=== PATIENT | female | born 1960 | race Caucasian/White ===

== ENCOUNTER 2016-08-31 12:53 | Observation (INO) | payer OTHER ==
[~2016-08-31] VITALS: Ht 165.1 cm; Wt 84.0 kg
[~2016-08-31 12:53] MED LIST: CYCL5TAB PO; ESTR0.5T9 PO; OXYC-360 PO; PARENTERAL ELECTROLYTES PH 7.4 1000 ML BAG IV ONE
[2016-08-31 12:55] VITALS: BP 194/90; PULSE 82; RESP 20; TEMP 97.6; O2SAT 99
[2016-08-31] MEDS ORDERED: SODIUM CHLOR 0.9% 1000 ML INJ 1,000 ML IV SCH (13:18)
--- NOTE | 2016-08-31 13:19 | PD ---
HPI Chief Complaint: Foreign Body Time Seen by Provider: 13:19 Travel History International Travel<30 days: No Contact w/Intl Traveler<30days: No Traveled to known affect area: No History of Present Illness HPI 55-year-old female with a history of chronic low back pain presents to the emergency department for evaluation of difficulty swallowing. The patient states that last night after eating a hot dog she feels as though it is stuck in her throat and she cannot swallow it down. States that she's been unable to swallow anything since this occurred last night, cannot even swallow her saliva. She denies any vomiting or abdominal pain. States that this has happened to her multiple times over the last 10 years however the symptoms last about 10 minutes to 2 hours and either she vomits or the food will pass and it will resolve on its own. States that this is the only instance it has lasted this long and not resolved. If that she did have an endoscopy about 3 years ago , thinks that this was performed by Dr. Lares. She denies any fever, chills , chest pain, shortness of breath, abdominal pain, diarrhea, constipation. PCP Dr. Duran. No other complaints. PFSH Past Medical History Hx Anticoagulant Therapy: No Anxiety: Yes Heart Rhythm Problems: No Cancer: No Cardiac Catheterization: No Cardiovascular Problems: No High Cholesterol: No Chemotherapy: No Congestive Heart Failure: No Cerebrovascular Accident: No Diabetes: No Hepatitis: No Hiatal Hernia: No Heparin Induced Thrombocytopen: No Hypertension: No Medical other: No Musculoskeletal: Yes (BACK PAIN) Respiratory: No Thyroid Disease: No PNEUMOCCOCAL Vaccine (Year): 2 ?: Not (status post hysterectomy) Past Surgical History Coronary Artery Bypass Graft: No Gynecologic Surgery: Yes (DONATED EGGS) Hysterectomy: Yes Other Surgery: Yes Family History Family Myocardial Infarction: No Social History Alcohol Use: No Tobacco Use: No Substance Use: No Allergies-Medications (Allergen,Severity, Reaction): Coded Allergies: Codeine (Verified Allergy, Severe, Nausea/Vomiting, 08/31/16) Reported Meds & Prescriptions Reported Meds & Active Scripts Active Reported Magnesium 250 Mg Tab Hydrocodone-Acetaminophen 5-300 Mg Tab 5 Tab PO Q4H PRN Estrace (Estradiol) 1 Mg Tab 1 Mg PO DAILY Vitamin D (Cholecalciferol) 1,000 Unit Tab 1,000 Units PO DAILY B-12 (Cyanocobalamin) 1,000 Mcg Lozg 1,000 Mcg BUCCAL DAILY Amitriptyline (Amitriptyline HCl) 10 Mg Tab 10 Mg PO HS Review of Systems Except as stated in HPI: all other systems reviewed are Neg Physical Exam Narrative GENERAL: Well-nourished and well-developed pleasant female patient in no acute distress. SKIN: Warm and dry. HEAD: Normocephalic and atraumatic. EYES: No injection, drainage, or hyphema noted. PERRLA. EOMI. ENT: No nasal drainage noted. Oropharynx is clear and the airway is patent. NECK: Supple and the trachea is midline. CARDIOVASCULAR: Regular rate and rhythm. RESPIRATORY: Breath sounds are equal bilaterally with no accessory muscle use, wheezing, rhonchi, or crackles. GASTROINTESTINAL: Abdomen is soft, non-tender, and nondistended. MUSCULOSKELETAL: No obvious deformities, swelling, cyanosis, or ecchymosis is present throughout the upper and lower extremities. Patient has full range of motion without any signs of neurovascular compromise. NEUROLOGICAL: Awake, alert, and oriented. Normal speech and gait. Cranial nerves are grossly intact. Data Data Last Documented VS Vital Signs Date Time Temp Pulse Resp B/P Pulse Ox O2 Delivery O2 Flow Rate FiO2 08/31/16 13:34 97 Nasal Cannula 2 08/31/16 13:33 84 18 08/31/16 12:55 97.6 194/90 Orders Complete Blood Count With Diff (08/31/16 13:18) Comprehensive Metabolic Panel (08/31/16 13:18) Lipase (08/31/16 13:18) Prothrombin Time / Inr (Pt) (08/31/16 13:18) Act Partial Throm Time (Ptt) (08/31/16 13:18) Iv Access Insert/Monitor (08/31/16 13:18) Ecg Monitoring (08/31/16 13:18) Oximetry (08/31/16 13:18) Sodium Chlor 0.9% 1000 Ml Inj (Ns 1000 M (08/31/16 13:18) Sodium Chloride 0.9% Flush (Ns Flush) (08/31/16 13:30) Glucagon Inj (Glucagon Inj) (08/31/16 13:30) Admit Order (Ed Use Only) (08/31/16 14:02) Labs Laboratory Tests Test 08/31/16 13:41 White Blood Count 16.1 TH/MM3 Red Blood Count 5.08 MIL/MM3 Hemoglobin 15.0 GM/DL Hematocrit 43.7 % Mean Corpuscular Volume 85.9 FL Mean Corpuscular Hemoglobin 29.6 PG Mean Corpuscular Hemoglobin 34.4 % Concent Red Cell Distribution Width 12.7 % Platelet Count 477 TH/MM3 Mean Platelet Volume 7.2 FL Neutrophils (%) (Auto) 76.9 % Lymphocytes (%) (Auto) 16.6 % Monocytes (%) (Auto) 5.7 % Eosinophils (%) (Auto) 0.4 % Basophils (%) (Auto) 0.4 % Neutrophils # (Auto) 12.4 TH/MM3 Lymphocytes # (Auto) 2.7 TH/MM3 Monocytes # (Auto) 0.9 TH/MM3 Eosinophils # (Auto) 0.1 TH/MM3 Basophils # (Auto) 0.1 TH/MM3 CBC Comment DIFF FINAL Differential Comment Prothrombin Time 11.2 SEC Prothromb Time International 1.0 RATIO Ratio Activated Partial 25.4 SEC Thromboplast Time Sodium Level 138 MEQ/L Potassium Level 3.4 MEQ/L Chloride Level 103 MEQ/L Carbon Dioxide Level 26.3 MEQ/L Anion Gap 9 MEQ/L Blood Urea Nitrogen 17 MG/DL Creatinine 0.85 MG/DL Estimat Glomerular Filtration 70 ML/MIN Rate Random Glucose 94 MG/DL Calcium Level 9.0 MG/DL Total Bilirubin 1.5 MG/DL Aspartate Amino Transf 17 U/L (AST/SGOT) Alanine Aminotransferase 23 U/L (ALT/SGPT) Alkaline Phosphatase 62 U/L Total Protein 8.2 GM/DL Albumin 4.3 GM/DL Lipase 112 U/L [facility] Medical Decision Making Medical Screen Exam Complete: Yes Emergency Medical Condition: Yes Differential Diagnosis Food bolus impaction versus esophageal stricture versus hiatal hernia versus GERD Narrative Course 55-year-old female presents to the emergency department for evaluation of food bolus impaction. Patient is afebrile, vital signs are stable. Physical examination is essentially unremarkable. IV access is obtained, labs drawn and sent. Patient is administered 2 g of IV glucagon without resolution of symptoms. She'll be kept under observation for EGD and retrieval of food bolus. CBC shows an elevated white blood cell count 16.1, likely stress reaction. CMP shows slightly decreased potassium at 3.4. Coags are unremarkable. I discussed the case with my attending physician Dr. Monson who is aware of the patients history, physical examination findings, and treatment plan. Physician Communication Physician Communication I spoke with Dr. Vargas mechanical equipment test engineer radiation therapy technician who agrees to take the patient to EGD today. Diagnosis Primary Impression: Esophageal obstruction due to food impaction Admitting Information Admitting Physician Requests: Observation Loren Lopez Aug 31, 2016 13:19
[2016-08-31] MEDS ORDERED: ESTR1 PO (13:20)
[2016-08-31] MEDS ORDERED: AMIT10TA6 PO (13:20)
[2016-08-31] MEDS ORDERED: ESSE250T (13:20)
[2016-08-31] MEDS ORDERED: VITA100064 PO (13:20)
[2016-08-31] MEDS ORDERED: CYAN100015 BUCCAL (13:20)
[2016-08-31] MEDS ORDERED: HYDR-4107 PO (13:20)
[2016-08-31] MEDS ORDERED: GLUCAGON 1 MG/ML VIAL IV PUSH ONE (13:30)
[2016-08-31] MEDS ORDERED: SODIUM CHLORIDE 0.9% FLUSH 10 ML FLUSH IV FLUSH PRN (13:30)
[2016-08-31 13:34] VITALS: O2SAT 97
[2016-08-31 13:54] LABS: AUTOMATED NEUTROPHIL # 12.4 TH/MM3 (1.8-7.7); BASOPHIL # 0.1 TH/MM3 (0-0.2); BASOPHIL % 0.4 % (0.0-2.0); EOSINOPHIL # 0.1 TH/MM3 (0-0.4); EOSINOPHIL % 0.4 % (0.0-4.0); HEMATOCRIT 43.7 % (35.0-46.0); HEMO FLAGS DIFF FINAL; LYMPH % 16.6 % (9.0-44.0); LYMPHOCYTE # 2.7 TH/MM3 (1.0-4.8); MEAN CELL VOLUME 85.9 FL (80.0-100.0); MEAN CORPUSCULAR HEMOGLOBIN 29.6 PG (27.0-34.0); MEAN CORPUSCULAR HGB CONC 34.4 % (32.0-36.0); MONO % 5.7 % (0.0-8.0); NEUT % 76.9 % (16.0-70.0); PLATELET COUNT 477 TH/MM3 (150-450); RED BLOOD COUNT 5.08 MIL/MM3 (4.00-5.30); RED CELL DISTRIBUTION WIDTH 12.7 % (11.6-17.2); WHITE BLOOD COUNT 16.1 TH/MM3 (4.0-11.0)
[2016-08-31 14:00] LABS: APTT (PATIENT) 25.4 SEC (24.3-30.1); PROTHROMBIN TIME - PATIENT 11.2 SEC (9.8-11.6)
[2016-08-31 14:12] LABS: ANION GAP 9 MEQ/L (5-15); AST (GOT) 17 U/L (15-37); BICARBONATE 26.3 MEQ/L (21.0-32.0); BLOOD UREA NITROGEN 17 MG/DL (7-18); CHLORIDE 103 MEQ/L (98-107); GLOMERULAR FILTRATION RATE 70 ML/MIN (>89); POTASSIUM 3.4 MEQ/L (3.5-5.1); SODIUM (NA) 138 MEQ/L (136-145)
[2016-08-31 14:15] LABS: ALKALINE PHOSPHATASE 62 U/L (45-117); ALT (GPT) 23 U/L (10-53); TOTAL BILIRUBIN ADULT 1.5 MG/DL (0.2-1.0)
--- NOTE | 2016-08-31 16:43 | GIPROC ---
[facility] [address] [facility]. [facility], [address] EGD PROCEDURE REPORT EXAM DATE: 08/31/2016 PATIENT NAME: Johanne Shah MR #: [id number] BIRTHDATE: 1960 ATTENDING: Sayra Vargas MD ORDER #: [id number] SERVICE ADVISOR: Jake Hendrix and Maribell Pal STATUS: inpatient INDICATIONS: The patient is a 55 yr old female here for an EGD due to food impaction PROCEDURE PERFORMED: EGD w/ fb removal MEDICATIONS: Per Anesthesia and None. TOPICAL ANESTHETIC: CONSENT: The patient understands the risks and benefits of the procedure and understands that these risks include, but are not limited to: sedation, allergic reaction, infection, perforation and/or bleeding. Alternative means of evaluation and treatment include, among others: physical exam, x-rays, and/or surgical intervention. The patient elects to proceed with this endoscopic procedure. medical equipment was checked for proper function. Hand hygiene and appropriate measures for infection prevention was taken. After the risks, benefits and alternatives of the procedure were thoroughly explained, Informed consent was verified, confirmed and timeout was successfully executed by the treatment team. The patient was anesthetized with topical anesthesia and the Pentax EG-[id number] endoscope was introduced through the mouth and advanced to the second portion of the duodenum. Retroflexed views revealed no abnormalities The gastroscope was then slowly withdrawn and removed. Large food impaction in mid esophagus removed by net and pushing it to stomach mucosal tear at the food impaction site from reaching dilation was not done necause of the mucosal tear. The endoscopy was otherwise normal. ADVERSE EVENTS: There were no complications. IMPRESSIONS: 1. Large food impaction in mid esophagus removed by net and pushing it to stomach mucosal tear at the food impaction site from reaching dilation was not done necause of the mucosal tear 2. Normal endoscopy otherwise 3. Retroflexed views revealed no abnormalities RECOMMENDATIONS: Clear liquid for 48 hours advance diet to soft slowely ofter that, chew food well come back to hospital if any fever, chest pain, dysphagia vomiting blood protonix 40 mg po Q am f/u with GI in 2 wks for she will need EGD with possible dilation PATIENT CONDITION: stable DISPOSITION: Home REPEAT EXAM: Return 4 weeks EGD Sayra Vargas MD eSigned: Sayra Vargas MD 08/31/2016 4:43 PM cc: PATIENT NAME: Johanne Shah MR#: [id number]
[2016-08-31 16:49] VITALS: TEMP 98.4
[2016-08-31] MEDS ORDERED: DO NOT ADM ANY ANTICOAGULANT DRUGS PRN (17:00)
[2016-08-31 17:15] VITALS: BP 148/84; PULSE 89; RESP 14; O2SAT 94
[2016-08-31] MEDS ORDERED: PROPOFOL 200 MG/20 ML AMP IV ONE (17:38)
--- NOTE | 2016-09-01 04:53 | MB ---
cc: ROSALIEBURAKKIA DATE OF CONSULTATION: 08/31/2016 REASON FOR CONSULTATION: Food impaction, dysphagia. DATE OF : 1960 REFERRING PHYSICIAN: Dr. Monson. Thank you for the consultation. HISTORY OF PRESENT ILLNESS: The patient is a 55-year-old lady who has been in good health until recently. The patient has chronic dysphagia. She stated that she has a problem with food getting stuck almost daily. The patient stated that she was eating a hot dog and she felt that it got stuck in the mid esophagus. She was not able to swallow saliva. She waited for almost 24 hours and came in after that. She has been retching and even not able to tolerate her saliva. Apparently Dr. Lares performed upper endoscopy about three years ago. She was supposed to have dilation but she never came back. The patient denies any other symptoms at this time. PAST MEDICAL HISTORY: Significant for: Anxiety. Back pain. FAMILY HISTORY: Noncontributory. PAST SURGICAL HISTORY: Egg donation. Hysterectomy. SOCIAL HISTORY Negative for tobacco, drug or alcohol. ALLERGIES CODEINE MEDICATIONS Reviewed in the chart. REVIEW OF SYSTEMS All 12-points negative except HPI. PHYSICAL EXAMINATION Alert, oriented, no acute distress. The patient is nervous Vital signs stable. HEENT: Pupils round, reactive to light. Neck: Supple. Chest: Clear. Cardiac: Regular rate and rhythm. Abdomen: Soft, nondistended. Positive bowel sounds. Extremities: No edema, clubbing or cyanosis. Neurologically intact. Psychologically appropriate. LABORATORY DATA White count 6.1, hemoglobin 15, platelets 477, INR 1.0. Chemistry was normal. ASSESSMENT/PLAN The patient is a 55-year-old lady who has food impaction and dysphagia, not tolerating her saliva. This has been going on for 24 hours. She has known history of impaction in the past. I recommend doing upper endoscopy on an urgent basis. We will intubate the patient to protect her airway. If I feel that it is safe to dilate, I will do that. The patient has been retching for the last 24 hours and that can cause necrosis of the esophagus or abnormalities. The patient may need to come back as an outpatient for dilation and for colonoscopy. I discussed with the patient the procedure and complication. She is agreeable to have it done. This will be done on an urgent basis in the OR now. MD JUSTIN Mathur/SVEN /10:33 PM /3:46 AM
== END 2016-09-01 06:26 | disposition home or self-care (01) ==
LOC: NEPC 12:53 → NEDA 14:04
PROVIDERS: ADMIT Hospitalist; ATTEND Hospitalist
DX: T18.128A Food in esophagus causing other injury, initial encounter (principal); F41.9 Anxiety disorder, unspecified; M54.5 Low back pain; G89.29 Other chronic pain; Z88.5 Allergy status to narcotic agent
CPT/HCPCS: 00740; 43247; 80053; 83690; 85025; 85610; 85730; 96374; 99284; G0378; J1610; J3010; J7030

== ENCOUNTER 2017-04-20 02:57 | Day surgery (SDC) | payer OTHER ==
[~2017-04-20 02:57] MED LIST changes: +AMIT10TA6 PO; +CYAN100015 BUCCAL; -CYCL5TAB PO; +ESSE250T; -ESTR0.5T9 PO; +ESTR1 PO; +HYDR-4107 PO; -OXYC-360 PO; -PARENTERAL ELECTROLYTES PH 7.4 1000 ML BAG IV ONE; +VITA100064 PO
[2017-04-20 02:58] VITALS: BP 149/92; PULSE 86; RESP 16; TEMP 98.8; O2SAT 97
[2017-04-20 03:25] VITALS: BP 139/85; PULSE 80; RESP 11; O2SAT 98
[2017-04-20] MEDS ORDERED: CYAN1000P IM (03:25)
[2017-04-20] MEDS ORDERED: MAGN250T11 PO (03:25)
--- NOTE | 2017-04-20 04:07 | PD ---
HPI Chief Complaint: Foreign Body Time Seen by Provider: 03:29 Travel History International Travel<30 days: No Contact w/Intl Traveler<30days: No Traveled to known affect area: No History of Present Illness HPI 56 yo f presents with a cc of chicken stuck in her throat. She states that she was eating dinner earlier tonight when she got a piece of chicken lodged in her throat. She has experienced this before, during that occasion she underwent endoscopy with balloon dilation. She currently has pain in her throat and has been unable to tolerate her own secretions. No CP, SOB, Nausea or vomiting. Context as above, symptoms moderate, associated signs symptoms as above, constant since onset at dinner. PFSH Past Medical History Hx Anticoagulant Therapy: No Anxiety: Yes Heart Rhythm Problems: No Cancer: No Cardiac Catheterization: No Cardiovascular Problems: No High Cholesterol: No Chemotherapy: No Congestive Heart Failure: No Cerebrovascular Accident: No Diabetes: No Gastrointestinal Disorders: Yes (ESOPHAGEAL STRICTURE) Hepatitis: No Hiatal Hernia: No Heparin Induced Thrombocytopen: No Hypertension: No Musculoskeletal: Yes (BACK PAIN) Respiratory: No Thyroid Disease: No Tetanus Vaccination: Unknown Influenza Vaccination: Yes PNEUMOCCOCAL Vaccine (Year): 2 ?: Not Past Surgical History Coronary Artery Bypass Graft: No Gynecologic Surgery: Yes (DONATED EGGS) Hysterectomy: Yes Other Surgery: Yes (ESOPHAGEAL DILATION) Social History Alcohol Use: No Tobacco Use: No Substance Use: No Allergies-Medications (Allergen,Severity, Reaction): Coded Allergies: codeine (Unverified Allergy, Severe, Nausea/Vomiting, 04/20/17) Reported Meds & Prescriptions Reported Meds & Active Scripts Active Reported Cyanocobalamin Inj (Cyanocobalamin) 1,000 Mcg/Ml Inj 1,000 Mcg IM Q30D Magnesium Oxide 250 Mg Tab 250 Mg PO DAILY Hydrocodone-Acetaminophen 5-300 Mg Tab 5 Tab PO Q4H PRN Estrace (Estradiol) 1 Mg Tab 1 Mg PO DAILY Vitamin D3 (Cholecalciferol) 1,000 Unit Tab 1,000 Units PO DAILY Review of Systems Except as stated in HPI: all other systems reviewed are Neg Physical Exam Narrative GENERAL: patient is sitting forward spitting into a cup, appears uncomfortable. SKIN: Warm and dry. HEAD: Atraumatic. Normocephalic. EYES: Pupils equal and round. No scleral icterus. No injection or drainage. ENT: No nasal bleeding or discharge. Mucous membranes pink and moist. no evidence of the lodged food particle NECK: Trachea midline. No JVD. no masses CARDIOVASCULAR: Regular rate and rhythm. RESPIRATORY: No accessory muscle use. Clear to auscultation. Breath sounds equal bilaterally. GASTROINTESTINAL: Abdomen soft, non-tender, nondistended. Hepatic and splenic margins not palpable. MUSCULOSKELETAL: Extremities without clubbing, cyanosis, or edema. No obvious deformities. NEUROLOGICAL: Awake and alert. No obvious cranial nerve deficits. Motor grossly within normal limits. Five out of 5 muscle strength in the arms and legs. Normal speech. PSYCHIATRIC: Appropriate mood and affect; insight and judgment normal. Data Data Last Documented VS Vital Signs Date Time Temp Pulse Resp B/P (MAP) Pulse Ox O2 Delivery O2 Flow Rate FiO2 04/20/17 03:25 80 11 139/85 (103) 98 Room Air 04/20/17 02:58 98.8 Orders Orders Basic Metabolic Panel (Bmp) (04/20/17 04:01) Complete Blood Count With Diff (04/20/17 04:01) Iv Access Insert/Monitor (04/20/17 04:01) Ecg Monitoring (04/20/17 04:01) Oximetry (04/20/17 04:01) Sodium Chloride 0.9% Flush (Ns Flush) (04/20/17 04:15) Electrocardiogram (04/20/17 04:01) Chest, Single Ap (04/20/17 04:01) Glucagon Inj (Glucagon Inj) (04/20/17 04:15) Orphenadrine Inj (Norflex Inj) (04/20/17 04:15) Glucagon Inj (Glucagon Inj) (04/20/17 05:00) Admit Order (Ed Use Only) (04/20/17 ) Labs Laboratory Tests Test 04/20/17 04:20 White Blood Count 9.7 TH/MM3 Red Blood Count 4.77 MIL/MM3 Hemoglobin 14.6 GM/DL Hematocrit 42.3 % Mean Corpuscular Volume 88.6 FL Mean Corpuscular Hemoglobin 30.5 PG Mean Corpuscular Hemoglobin Concent 34.4 % Red Cell Distribution Width 12.8 % Platelet Count 332 TH/MM3 Mean Platelet Volume 7.5 FL Neutrophils (%) (Auto) 55.4 % Lymphocytes (%) (Auto) 28.9 % Monocytes (%) (Auto) 6.8 % Eosinophils (%) (Auto) 8.4 % Basophils (%) (Auto) 0.5 % Neutrophils # (Auto) 5.4 TH/MM3 Lymphocytes # (Auto) 2.8 TH/MM3 Monocytes # (Auto) 0.7 TH/MM3 Eosinophils # (Auto) 0.8 TH/MM3 Basophils # (Auto) 0.0 TH/MM3 CBC Comment DIFF FINAL Differential Comment Blood Urea Nitrogen 10 MG/DL Creatinine 0.85 MG/DL Random Glucose 99 MG/DL Calcium Level 8.9 MG/DL Sodium Level 140 MEQ/L Potassium Level 3.6 MEQ/L Chloride Level 106 MEQ/L Carbon Dioxide Level 26.6 MEQ/L Anion Gap 7 MEQ/L Estimat Glomerular Filtration Rate 70 ML/MIN MDM Medical Decision Making Medical Screen Exam Complete: Yes Emergency Medical Condition: Yes Differential Diagnosis Lodged food particle, Esophageal strictures, achalasia, GERD, Mendoza's Esophagus Narrative Course CBC, BMP, CXR, EKG, Glucagon, GI consult for EGD if Glucagon fails. Patient roomed in the emergency department, not tolerating her own secretions to sitting forward spitting into a cup. 2 doses of glucagon were given as well as Norflex which had no effect on her symptoms. Discussed with Dr. Lares for endoscopy. Diagnosis Primary Impression: Esophageal obstruction due to food impaction Wilder Do MD Apr 20, 2017 04:07
[2017-04-20] MEDS ORDERED: GLUCAGON 1 MG/ML VIAL IV PUSH ONE ×2 (04:15→05:00)
[2017-04-20] MEDS ORDERED: ORPHENADRINE INJ 60 MG/2 ML AMP IM ONE (04:15)
[2017-04-20] MEDS ORDERED: SODIUM CHLORIDE 0.9% FLUSH 10 ML FLUSH IV FLUSH PRN (04:15)
--- NOTE | 2017-04-20 04:38 | RADRPT ---
EXAM DATE/TIME: 04/20/2017 04:17 [facility] COMPARISON: No previous studies available for comparison. INDICATIONS : Free air. Patient states she feels like food is stuck in her esophagus MEDICAL HISTORY : None. SURGICAL HISTORY : None. ENCOUNTER: Initial ACUITY: 1 day PAIN SCORE: 0/10 LOCATION: Bilateral chest FINDINGS: A single view of the chest demonstrates the lungs to be symmetrically aerated without evidence of mas s, infiltrate or effusion. The cardiomediastinal contours are unremarkable. Osseous structures are intact. There is no free air. CONCLUSION: No acute disease. There is no free air. Albert Magana MD on April 20, 2017 at 4:36 Board Certified Radiologist. This report was verified electronically.
[2017-04-20 04:57] LABS: AUTOMATED NEUTROPHIL # 5.4 TH/MM3 (1.8-7.7); BASOPHIL % 0.5 % (0.0-2.0); EOSINOPHIL # 0.8 TH/MM3 (0-0.4); EOSINOPHIL % 8.4 % (0.0-4.0); HEMATOCRIT 42.3 % (35.0-46.0); HEMO FLAGS DIFF FINAL; LYMPH % 28.9 % (9.0-44.0); LYMPHOCYTE # 2.8 TH/MM3 (1.0-4.8); MEAN CELL VOLUME 88.6 FL (80.0-100.0); MEAN CORPUSCULAR HEMOGLOBIN 30.5 PG (27.0-34.0); MEAN CORPUSCULAR HGB CONC 34.4 % (32.0-36.0); MONO % 6.8 % (0.0-8.0); NEUT % 55.4 % (16.0-70.0); PLATELET COUNT 332 TH/MM3 (150-450); RED BLOOD COUNT 4.77 MIL/MM3 (4.00-5.30); RED CELL DISTRIBUTION WIDTH 12.8 % (11.6-17.2); WHITE BLOOD COUNT 9.7 TH/MM3 (4.0-11.0)
[2017-04-20 05:00] LABS: BICARBONATE 26.6 MEQ/L (21.0-32.0); POTASSIUM 3.6 MEQ/L (3.5-5.1)
[2017-04-20 09:40] VITALS: BP 140/78; PULSE 83; RESP 15; O2SAT 99
--- NOTE | 2017-04-20 13:39 | MB ---
cc: RADHA LEE M.D., ROBERT J. MD DATE OF CONSULTATION: 04/20/2017. REASON FOR CONSULTATION: Dysphagia secondary to esophageal foreign body. HISTORY OF PRESENT ILLNESS: Ms. Shah is a 56-year-old lady who states that she was having dinner last night with chicken and this is stuck in her esophagus. She states she had had multiple problems with this in the past. She has had endoscopy with dilation done in the past in August of this year. She states usually the food bolus passes by itself but this time around it has not moved. She is unable to swallow her saliva. PAST MEDICAL HISTORY: 1. Anxiety disorder. 2. History of esophageal stricture. 3. Degenerative disease. PAST SURGICAL HISTORY: 1. Esophageal dilatation in the past. 2. Colonoscopy in the past. SOCIAL HISTORY: No tobacco and no alcohol. ALLERGIES: CODEINE. MEDICATIONS ON ADMISSION: 1. Magnesium oxide. 2. Lortab. 3. Estrace. 4. Vitamin B3. REVIEW OF SYSTEMS: The patient is having difficulty with swallowing and handling her saliva. PHYSICAL EXAMINATION: GENERAL: The physical exam reveals a well-nourished lady in no apparent distress. VITAL SIGNS: The vitals are stable. HEAD AND NECK: Anicteric sclerae. CHEST: Bilateral air entry with rales. ABDOMEN: Abdomen is soft, nontender with no hepatosplenomegaly. Bowel sounds present. HAND COREMAKER: Nonfocal. RECTAL: Deferred at this time. LABS: Labs reveal white count of 9.7, hemoglobin 14.6, creatinine 0.85. IMPRESSION: Esophageal foreign body. RECOMMENDATIONS: 1. EGD with foreign body removal planned as soon as possible. 2. Keep NPO at this time with IV fluids. 3. Risks and limitations have been discussed with the patient. Further recommendations to follow. Thank you for this referral. MD RHIANNA Momin/OMARI /12:52 PM /1:39 PM
--- NOTE | 2017-04-20 14:46 | GIPROC ---
[facility] [address] [facility]. [facility], [address] EGD PROCEDURE REPORT EXAM DATE: 04/20/2017 PATIENT NAME: Johanne Shah MR #: [id number] BIRTHDATE: 1960 ATTENDING: Charles Lares MD ORDER #: [id number] RUBBER TURNER: Silvia Canada and Kevni Shirley STATUS: outpatient INDICATIONS: The patient is a 56 yr old female here for an EGD due to dysphagia and foreign body removal from esophagus PROCEDURE PERFORMED: EGD w/ biopsy EGD w/ fb removal MEDICATIONS: None and Per Anesthesia. TOPICAL ANESTHETIC: CONSENT: The patient understands the risks and benefits of the procedure and understands that these risks include, but are not limited to: sedation, allergic reaction, infection, perforation and/or bleeding. Alternative means of evaluation and treatment include, among others: physical exam, x-rays, and/or surgical intervention. The patient elects to proceed with this endoscopic procedure. medical equipment was checked for proper function. Hand hygiene and appropriate measures for infection prevention was taken. After the risks, benefits and alternatives of the procedure were thoroughly explained, Informed consent was verified, confirmed and timeout was successfully executed by the treatment team. The patient was anesthetized with topical anesthesia and the Pentax EG-[id number] endoscope was introduced through the mouth and advanced to the second portion of the duodenum. Retroflexed views revealed no abnormalities The gastroscope was then slowly withdrawn and removed. ESOPHAGUS: There was LA Class B esophagitis noted. A biopsy was performed using cold forceps. Sample sent for histology. Food bolus mid esophagus. Tight mid esophagus without a clear stricture. Food bolus pushed into the stomoach. STOMACH: The mucosa of the stomach appeared normal. DUODENUM: The duodenal mucosa appeared normal in the bulb and second portion of the duodenum. ADVERSE EVENTS: There were no complications. IMPRESSIONS: 1. There was LA Class B esophagitis noted; biopsy was performed 2. Food bolus mid esophagus. Tight mid esophagus without a clear stricture. Food bolus pushed into the stomoach 3. The mucosa of the stomach appeared normal 4. Normal duodenal mucosa in the bulb and second portion of the duodenum 5. Retroflexed views revealed no abnormalities RECOMMENDATIONS: 1. Await biopsy results. Biopsy results will not be ready for 7-10 days. If you don't hear from us in two weeks, call our office for biopsy results. 2. Anti-reflux regimen 3. Start PPI 4. Avoid NSAIDS PATIENT CONDITION: stable DISPOSITION: Home REPEAT EXAM: Return 1 month EGD with dilatation Charles Lares MD eSigned: Charles Lares MD 04/20/2017 2:46 PM cc: Ryan Duran M.D. PATIENT NAME: Johanne Shah MR#: [id number]
[2017-04-20 14:56] VITALS: TEMP 97.8
[2017-04-20] MEDS ORDERED: DO NOT ADM ANY ANTICOAGULANT DRUGS PRN (14:56)
[2017-04-20 15:15] VITALS: BP 130/76; PULSE 88; RESP 16; O2SAT 95
--- NOTE | 2017-04-20 21:29 | EKG ---
Date Performed: 04/20/2017 Time Performed: 07:16:55 PTAGE: 56 years EKG: Sinus rhythm LOW QRS VOLTAGE IN PRECORDIAL LEADS ST/T-WAVE ABNORMALITY, CONSIDER ANTERIOR ISCHEMIA ABNORMAL ECG PREVIOUS TRACING : 07/18/2011 19.18 Compared to previous tracing, PVCs are no longer present. DOCTOR: Jon Venegas Interpretating Date/Time 04/20/2017 21:28:32
== END 2017-04-20 15:14 | disposition home or self-care (01) ==
LOC: NEPE 02:57 → HSDC 06:47
PROVIDERS: ATTEND Internal Medicine Gastroenterology
DX: T18.128A Food in esophagus causing other injury, initial encounter (principal); K20.9 Esophagitis, unspecified; F41.9 Anxiety disorder, unspecified; R94.31 Abnormal electrocardiogram [ECG] [EKG]
CPT/HCPCS: 00740; 43239; 43247; 71010; 80048; 85025; 88305; 93005; 96372; 96374; 96376; 99284; J1610; J2360